=== PATIENT | female | born 1980 | race African-American/Black ===

== ENCOUNTER 2024-04-16 18:21 | Observation (INO) | payer BC, OTHER ==
[~2024-04-16] VITALS: Ht 149.9 cm; Wt 80.7 kg
[~2024-04-16 18:21] MED LIST: AMLODIPINE BESYL5 MG PO; ASPIRIN CHEW81 MG PO; ATORVASTATIN CA20 MG PO; HYZAAR 100-251 EACH PO; METFORMIN HCL500 MG PO; PROTONIX20 MG PO
[2024-04-16 18:29] VITALS: PULSE 81
[2024-04-16 18:59] LABS: BASOPHILS % 0.3 % (0.0-1.0); EOSINOPHILS # (AUTO) 0.2 (0.0-0.4); EOSINOPHILS % 3.1 % (0.0-6.0); HEMATOCRIT 44.1 % (34.2-44.1); LYMPHOCYTES # (AUTO) 2.9 (1.0-3.2); LYMPHOCYTES % 42.9 % (18.0-39.1); MEAN CORPUSCULAR HEMOGLOBIN 29.7 pg (28-32); MEAN CORPUSCULAR HGB CONC 31.7 g/dL (31-35); MEAN CORPUSCULAR VOLUME 93.4 fL (81-99); MONOCYTES # (AUTO) 0.5 (0.2-0.8); MONOCYTES % 7.1 % (4.4-11.3); NEUTROPHILS # (AUTO) 3.2 (2.1-6.9); NEUTROPHILS % 46.5 % (38.7-80.0); PLATELET COUNT 204 x10e3/uL (140-360); RED BLOOD COUNT 4.72 x10e6/uL (3.6-5.1); RED CELL DISTRIBUTION WIDTH 12.7 % (11.7-14.4); WHITE BLOOD COUNT 6.78 x10e3/uL (4.8-10.8)
[2024-04-16 19:11] LABS: ALBUMIN 4.3 g/dL (3.5-5.0); ALBUMIN/GLOBULIN RATIO 1.2 (0.8-2.0); ANION GAP 16.7 mmol/L (8-16); BILIRUBIN,TOTAL 0.5 mg/dL (0.2-1.2); CREATININE, SERUM 0.83 mg/dL (0.57-1.11); POTASSIUM 3.7 mmol/L (3.5-5.1); TOTAL PROTEIN 7.8 g/dL (6.5-8.1)
[2024-04-16 19:17] LABS: TROPONIN I 0.056 ng/mL (0-0.300)
[2024-04-16] MEDS ORDERED: IOPAMIDOL 370 MG/ML 100 ML INFUS..BTL INJ ONE (19:38)
[2024-04-16 19:51] LABS: CORONAVIRUS COVID-19 AG NEGATIVE (NEGATIVE); INFLUENZA A AG NEGATIVE (NEGATIVE); INFLUENZA B AG NEGATIVE (NEGATIVE)
[2024-04-16] MEDS ORDERED: KETOROLAC TROMETHAMINE 30 MG/ML VIAL ONE (20:45)
[2024-04-16] MEDS: KETOROLAC TROMETHAMINE 30 MG/ML VIAL IV STA ×2 (21:00→23:57)
[2024-04-16] MEDS: ONDANSETRON HCL INJ 2MG/ML 2ML 2 MG/ML VIAL IV PRN (22:14)
[2024-04-16] MEDS: Morphine 4mg INJECTION 4 MG/ML INJ IV PRN (22:15)
[2024-04-16] MEDS: HYDRALAZINE HCL 20 MG/ML VIAL IV PRN (22:19)
[2024-04-16] MEDS: METOPROLOL TARTRATE INJ 1 MG/ML VIAL IV STA (22:40)
[2024-04-16 22:47] VITALS: RESP 18; TEMP 98.6
[2024-04-16] MEDS ORDERED: METOPROLOL TARTRATE INJ 1 MG/ML VIAL IV PRN (23:15)
[2024-04-16 23:30] VITALS: BP 153/98; PULSE 75; RESP 16; TEMP 98.6; O2SAT 100
[2024-04-17] VITALS: BP 153/98; PULSE 75; RESP 16; TEMP 98.6; O2SAT 100
[2024-04-17 04:26] LABS: TROPONIN I 0.051 ng/mL (0-0.300)
[2024-04-17 05:39] LABS: BASOPHILS % 0.3 % (0.0-1.0); EOSINOPHILS # (AUTO) 0.3 (0.0-0.4); HEMATOCRIT 40.6 % (34.2-44.1); HEMOGLOBIN 12.9 g/dL (12.0-16.0); LYMPHOCYTES # (AUTO) 3.4 (1.0-3.2); LYMPHOCYTES % 52.5 % (18.0-39.1); MEAN CORPUSCULAR HEMOGLOBIN 30.1 pg (28-32); MEAN CORPUSCULAR HGB CONC 31.8 g/dL (31-35); MEAN CORPUSCULAR VOLUME 94.9 fL (81-99); MONOCYTES # (AUTO) 0.6 (0.2-0.8); MONOCYTES % 8.6 % (4.4-11.3); NEUTROPHILS # (AUTO) 2.2 (2.1-6.9); NEUTROPHILS % 34.3 % (38.7-80.0); PLATELET COUNT 180 x10e3/uL (140-360); RED BLOOD COUNT 4.28 x10e6/uL (3.6-5.1); WHITE BLOOD COUNT 6.53 x10e3/uL (4.8-10.8)
[2024-04-17 05:58] VITALS: BP 135/91; PULSE 75; RESP 18; TEMP 97.8; O2SAT 100
[2024-04-17 06:26] LABS: ALBUMIN 3.6 g/dL (3.5-5.0); ALBUMIN/GLOBULIN RATIO 1.2 (0.8-2.0); ANION GAP 16.1 mmol/L (8-16); BILIRUBIN,TOTAL 0.3 mg/dL (0.2-1.2); CALCIUM 8.5 mg/dL (8.4-10.2); CREATININE, SERUM 0.86 mg/dL (0.57-1.11); POTASSIUM 4.1 mmol/L (3.5-5.1); TOTAL PROTEIN 6.7 g/dL (6.5-8.1)
[2024-04-17 07:28] LABS: TROPONIN I 0.022 ng/mL (0-0.300)
[2024-04-17 08:40] VITALS: BP 132/88; PULSE 72; RESP 17; TEMP 97.9; O2SAT 99
[2024-04-17] MEDS: LOSARTAN POTASSIUM 25 MG TAB PO SCH (11:26)
[2024-04-17 12:05] VITALS: BP 134/99; PULSE 79; RESP 18; TEMP 98.6; O2SAT 100
[2024-04-17 14:31] LABS: CHOL/HDL RATIO 4.1 (3.0-3.6)
[2024-04-17 14:37] LABS: TROPONIN I 0.025 ng/mL (0-0.300)
[2024-04-17] MEDS ORDERED: METFORMIN HCL500 MG PO (14:46)
[2024-04-17] MEDS ORDERED: LOPRESSOR25 MG PO (14:46)
[2024-04-17] MEDS ORDERED: ASPIRIN EC81 MG PO (14:46)
[2024-04-17] MEDS ORDERED: PRAVASTATIN SOD20 MG PO (14:46)
[2024-04-17] MEDS ORDERED: COZAAR25 MG PO (14:46)
[2024-04-17] MEDS ORDERED: FAMOTIDINE20 MG PO (14:46)
[2024-04-17 15:15] VITALS: BP 134/99; PULSE 74
[2024-04-17] MEDS: METOPROLOL TARTRATE 25 MG TAB PO SCH (15:15)
[2024-04-17] MEDS: ASPIRIN 81 MG ENTERIC COATED PO SCH (15:15)
[2024-04-17] MEDS: FAMOTIDINE 20 MG TAB PO SCH (15:15)
[2024-04-17] MEDS: ENOXAPARIN SOD INJ 40 MG/0.4 ML SYR SC SCH (17:40)
[2024-04-17] MEDS ORDERED: METFORMIN HCL 500 MG TAB PO SCH (21:00)
[2024-04-17] MEDS ORDERED: PRAVASTATIN 20 MG TAB PO SCH (21:00)
== END 2024-04-17 18:37 | disposition home or self-care (01) ==
LOC: ER 18:32 → ERHOLD 21:19 → MED/SURG 23:57
PROVIDERS: ADMIT Internal Medicine; ATTEND Internal Medicine
DX: I10 Essential (primary) hypertension (principal); R07.89 Other chest pain; E78.5 Hyperlipidemia, unspecified; R94.31 Abnormal electrocardiogram [ECG] [EKG]; R73.03 Prediabetes; Z79.84 Long term (current) use of oral hypoglycemic drugs; M54.9 Dorsalgia, unspecified; G89.29 Other chronic pain; E66.9 Obesity, unspecified; Z68.36 Body mass index [BMI] 36.0-36.9, adult; Z11.52 Encounter for screening for COVID-19; Z86.73 Personal history of transient ischemic attack (TIA), and cerebral infarction without residual deficits; Z59.71 Insufficient health insurance coverage; Z59.86 Financial insecurity; Z79.899 Other long term (current) drug therapy; Z79.82 Long term (current) use of aspirin
CPT/HCPCS: 36415; 70496; 70498; 71260; 80053 ×2; 80061; 82550 ×2; 83036; 83690; 83880; 84484 ×2; 84702; 85025 ×2; 87428; 93005; 93306; 99252; 99284; G0378 ×2; J0360; J1650; J1885; J2270 ×2; J2405; Q9967